=== PATIENT | female | born 1990 | race African-American/Black ===

== ENCOUNTER 2016-10-28 18:10 | Emergency (ER) | payer BC, OTHER ==
[~2016-10-28] VITALS: Ht 162.6 cm; Wt 61.2 kg
--- NOTE | ~2016-10-28 | EKG ---
[address] [address] ELECTROCARDIOGRAM REPORT Name: ORTIZ BAHENA Room #: DEP [facility]#: [id number] Admission: 10/28/16 Attend Phys: Discharge: 10/28/16 Date of : [birth year] Report #: [id number] THIS REPORT FOR: //name// [facility] ED Test Date: 2016-10-28 Test Time: 19:03:44 Pat Name: ORTIZ BAHENA Department: Room: Gender: F Student Dean: ASHLEY : 1990 Requested By: Jarrett Farah Order Number: [id number] MD: Marc Ron Measurements Intervals [place] Rate: 75 P: 50 [place]: 143 QRS: 20 QRSD: 91 T: 19 QT: 408 QTc: 456 Interpretive Statements Sinus rhythm no significant abnormality Compared to ECG 04/03/2016 18:28:16 T-wave abnormality no longer present Electronically Signed On 10-30-2016 15:10:31 CDT by Marc Ron [email or web address] <ELECTRONICALLY SIGNED> By: Marc Ron MD, [facility] 10/30/16 1510 D: 03/1902 02 Marc Ron MD, FACC /EPI
[~2016-10-28 18:10] MED LIST: CALCIUM; MAGOX 400400 MG PO; NORCO 5-325 TA1 EACH; POST NATAL VITAMIN; TRINATE TABLET1 TAB PO; VENTOLIN HFA 1818 GM INH
[2016-10-28 19:03] LABS: ABSOLUTE NEUTROPHILS 2.3 thou/uL (1.4-8.2); BASOPHILS 1.3 % (0.0-2.0); EOSINOPHILS 2.6 % (0.0-3.0); HEMOGLOBIN 12.7 gm/dL (12.0-15.0); LYMPHOCYTES 44.9 % (24.0-44.0); MCH 28.2 pg (26.0-34.0); MCHC 32.5 g/dL (28.0-37.0); MCV 86.5 fL (80.0-100.0); MONOCYTES 10.8 % (1.0-8.0); PLATELET COUNT 212 thou/uL (150-400); POLYS 40.4 % (36.0-66.0); RBC 4.51 mil/uL (4.20-5.00); RDW 12.8 % (10.5-14.5); WBC 5.6 thou/uL (4.0-11.0)
[2016-10-28 19:09] LABS: CALCIUM 9.1 mg/dL (8.5-10.1); POTASSIUM 3.8 mmol/L (3.5-5.1)
[2016-10-28 19:12] LABS: MANUAL DIFF NO
[2016-10-28 19:15] LABS: ALBUMIN 3.8 g/dL (3.4-5.0); TOTAL BILIRUBIN 0.4 mg/dL (<0.1-1.0); TOTAL PROTEIN 7.7 g/dL (6.4-8.2)
[2016-10-28] MEDS ORDERED: REGLAN 10 MG TA10 MG PO (19:47)
== END 2016-10-28 20:05 | disposition home or self-care (01) ==
LOC: ER 18:10
PROVIDERS: Emergency Medicine
DX: G43.809 Other migraine, not intractable, without status migrainosus (principal); J45.909 Unspecified asthma, uncomplicated

== ENCOUNTER 2019-01-15 12:10 | Emergency (ER) | payer OTHER ==
[~2019-01-15] VITALS: Ht 170.2 cm; Wt 65.8 kg
[~2019-01-15 12:10] MED LIST changes: +REGLAN 10 MG TA10 MG PO
[2019-01-15 12:11] VITALS: BP 120/76
[2019-01-15] MEDS ORDERED: VERAPAMIL E.R240 M1 PO (12:18)
[2019-01-15] MEDS ORDERED: CYCLOBENZAPRINE5 MG PO (13:17)
[2019-01-15] MEDS ORDERED: MOBIC7.5 MG PO (13:17)
== END 2019-01-15 13:31 | disposition home or self-care (01) ==
LOC: ER 12:10
DX: S06.0X0A Concussion without loss of consciousness, initial encounter (principal); M54.2 Cervicalgia; G43.909 Migraine, unspecified, not intractable, without status migrainosus; V89.2XXA Person injured in unspecified motor-vehicle accident, traffic, initial encounter; Y93.I9 Activity, other involving external motion; Y92.89 Other specified places as the place of occurrence of the external cause; Y99.8 Other external cause status